=== PATIENT | male | born 1970 | race Caucasian/White ===

== ENCOUNTER → 2023-07-24 09:36 | Outpatient (BNVA) | payer OTHER, SELFPAY | PROVIDERS: Family Provider Nurse Practitioner; PCP Nurse Practitioner; Referring Provider Nurse Practitioner; Visit Provider Surgery | DX: K64.9 Unspecified hemorrhoids (principal) | CPT/HCPCS: 99204 ==

== ENCOUNTER 2023-09-05 11:47 | Day surgery (SDC) | payer OTHER, SELFPAY ==
[2023-09-05 12:09] VITALS: BP 134/88; PULSE 76; RESP 16; TEMP 36.3; O2SAT 94; BMI 28.0
--- NOTE | 2023-09-05 12:09 | W.PM.OPSFHP ---
Same Day Surgery H&P Indication for Procedure/HPI DATE OF PROCEDURE: September 05, 2023 CHIEF COMPLAINT/INDICATIONFOR SURGICAL PROCEDURE: need for screening colonoscopy PREOP DIAGNOSIS: need for screening colonoscopy PLANNED PROCEDURE: Operation Date: 09/05/23 12:30 Proposed Procedures p Colonoscopy 82276, G0105, K64.9, Z12.11(Not Applicable) - Sebastien Ramon MD Medications/Allergies* Home Medications Medication Instructions Recorded Confirmed Type aspirin 81 mg tablet,delayed 81 mg PO DAILY 07/24/23 09/05/23 History release hydrocortisone 1 %-pramoxine 1 % 1 applic topical BID PRN 07/24/23 09/05/23 History rectal foam (Proctofoam HC) Hemorrhoids sumatriptan succinate 50 mg tablet 50 mg PO Q2H PRN Headache 07/24/23 09/05/23 History testosterone cypionate 200 mg/mL 100 mg SUBCUT ONCE 07/24/23 09/03/23 History intramuscular oil (Depo-Testosterone) topiramate 25 mg tablet 25 mg PO DAILY 07/24/23 09/05/23 History azelastine 205.5 mcg (0.15 %) 2 spray intranasal DAILY 09/03/23 09/05/23 History nasal spray fluticasone propionate 50 1 spray intranasal DAILY 09/03/23 09/05/23 History mcg/actuation nasal spray,suspension rosuvastatin 5 mg tablet 5 mg PO DAILY 09/03/23 09/05/23 History Allergies/Adverse Reactions Allergy/AdvReac Type Severity Reaction Status Date / Time Alpha-Gal Allergy Unknown Verified 09/03/23 08:47 (Peubawsxx-Mbgmh-9,3-Gala Pertinent History/Comorbid Conditions* Medical History (Updated 07/24/23 @ 11:29 by Sebastien Ramon MD) Erectile dysfunction Environmental and seasonal allergies Social History Smoking and tobacco/nicotine status: never used tobacco/nicotine Pertinent Exam Findings alert, oriented x 3, clear to auscultation bilaterally and regular rate & rhythm Recommendations Surgery/Procedure today Coding Level of Care Code Acute Code for Chg Fwd
[2023-09-05] MEDS: sodium chloride 0.9% 1,000 ML 30 ML IV (12:13)
--- NOTE | 2023-09-05 12:20 | ANES.PREANE2 ---
Pre-Anesthetic Assessment Height/Weight: Height 1.93 m Weight 104.326 kg Temp Pulse Resp BP Pulse Ox O2 Del Method 97.3 F L 76 16 134/88 94 Room Air 09/05/23 12:09 09/05/23 12:09/05/23 12:09 09/05/23 12:09 09/05/23 12:09/05/23 12:09 Preop Diagnosis: need for screening colonoscopy Operation Date: 09/05/23 12:30 Proposed Procedures p Colonoscopy 63028, G0105, K64.9, Z12.11(Not Applicable) - Sebastien Ramon MD Familial anesthetic complications: None Was Beta Aguilar taken within 24 hours: N/A Was Clonidine taken within 24 hours: N/A Last intake: Intake Last Liquid Date 09/04/23 Last Liquid Time 23:00 Last Solid Date 09/03/23 Last Solid Time 17:30 Social No alcohol and No tobacco Exam alert, oriented x 3, clear to auscultation bilaterally and regular rate & rhythm Airway Mallampati: Class IV Dentition: partials Metabolic Hyperlipidemia Anesthetic Plan ASA status: 2 Anesthesia: MAC Risk of > 500 ml blood loss (7ml/kg in children): No Other Pertinent Information 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 Medications/Allergies Home Medications Medication Instructions Recorded Confirmed Last Taken Type sildenafil 100 mg tablet See Rx Instructions .Route 04/17/22 09/05/23 1 Week Ago Rx .COMPLEX #14 tabs ~08/27/23 aspirin 81 mg tablet,delayed 81 mg PO DAILY 07/24/23 09/05/23 09/04/23 History release hydrocortisone 1 %-pramoxine 1 % 1 applic topical BID PRN 07/24/23 09/05/23 Unknown History rectal foam (Proctofoam HC) Hemorrhoids hydrocortisone 2.5 % topical cream 1 applic [place] QID hemorrhoids 2 07/24/23 09/05/23 Unknown Rx with perineal applicator weeks #30 grams (Anusol-HC) sumatriptan succinate 50 mg tablet 50 mg PO Q2H PRN Headache 07/24/23 09/05/23 Unknown History testosterone cypionate 200 mg/mL 100 mg SUBCUT ONCE 07/24/23 09/03/23 1 Month Ago History intramuscular oil ~08/04/23 (Depo-Testosterone) topiramate 25 mg tablet 25 mg PO DAILY 07/24/23 09/05/23 09/04/23 History azelastine 205.5 mcg (0.15 %) 2 spray intranasal DAILY 09/03/23 09/05/23 09/04/23 History nasal spray fluticasone propionate 50 1 spray intranasal DAILY 09/03/23 09/05/23 09/04/23 History mcg/actuation nasal spray,suspension rosuvastatin 5 mg tablet 5 mg PO DAILY 09/03/23 09/05/23 09/04/23 History Allergies Allergy/AdvReac Type Severity Reaction Status Date / Time Alpha-Gal Allergy Unknown Verified 09/03/23 08:47 (Wusnyrufl-Ipkeu-9,3-Gala Current Medications Generic Name Dose Route Start Last Admin Trade Name Freq PRN Reason Stop Dose Admin Sodium Chloride 1,000 mls @ 30 mls/hr 09/05/23 12:00 09/05/23 12:13 Sodium Chloride 0.9% IV 09/06/23 11:59 30 mls/hr .Q24H VICKI Administration PFSH Anesthesia Medical History Erectile dysfunction Environmental and seasonal allergies Social History Smoking and tobacco/nicotine status: never used tobacco/nicotine Data Anesthesia Cardiac Studies: No Data to Display
[2023-09-05 13:01] VITALS: BP 117/78; PULSE 73; RESP 18; TEMP 36.4; O2SAT 95
[2023-09-05 13:15] VITALS: BP 107/77; PULSE 85; RESP 18; O2SAT 95
[2023-09-05 13:22] VITALS: BP 119/60; PULSE 75; RESP 18; O2SAT 96
--- NOTE | 2023-09-05 13:30 | ANE.PACU2 ---
Inpatient post-anesthesia follow up: Airway intact: Yes Vital signs: Temperature 97.6 F Pulse Rate 75 Respiratory Rate 18 Blood Pressure 119/60 Pulse Oximetry 96 Oxygen Delivery Me thod Room Air Oxygen Flow Rate Fraction of Inspir ed Oxygen Hydration adequate: Yes Nausea and vomiting: No Pain level: 1 Mental status: Baseline
== END 2023-09-05 13:31 | disposition home or self-care (01) ==
PROVIDERS: Family Provider Nurse Practitioner; PCP Nurse Practitioner; Visit Provider Surgery
PROC: 0DJD8ZZ Inspection of Lower Intestinal Tract, Via Natural or Artificial Opening Endoscopic (ICD-10-PCS; CPT 45378; principal; 2023-09-05 12:30)
DX: Z12.11 Encounter for screening for malignant neoplasm of colon (principal); Z79.82 Long term (current) use of aspirin; D12.8 Benign neoplasm of rectum; E78.5 Hyperlipidemia, unspecified
CPT/HCPCS: 45380; 88305; J2704; J7030

== ENCOUNTER → 2023-10-17 10:15 | Outpatient (BNVA) | payer OTHER, SELFPAY | PROVIDERS: Family Provider Nurse Practitioner; PCP Nurse Practitioner; Visit Provider Surgery | DX: Z09 Encounter for follow-up examination after completed treatment for conditions other than malignant neoplasm (principal) | CPT/HCPCS: 99213 ==